=== PATIENT | male | born 1955 | race Caucasian/White ===

== ENCOUNTER 2021-10-01 07:06 | Outpatient (REF) | payer OTHER, SELFPAY ==
[2021-10-01 07:17] LABS: MANUAL DIFF FLAG NO
[2021-10-01 07:24] LABS: Eosinophils Absolute Auto 0.1 X10*3/uL (0.0-0.4); Eosinophils Percent Auto 2.8 % (0-4); Hematocrit 39.9 % (42.0-52.0); Hemoglobin 13.3 g/dl (14.0-18.0); Imm Gran Abs Auto 0.01 X10*3/uL (0.00-0.03); Imm Gran Pct Auto 0.3 % (0.0-0.4); Lymphocytes Absolute Auto 1.6 X10*3/uL (1.2-4.9); Lymphocytes Percent Auto 40.9 % (20-40); Mean Corpuscular HGB Conc 33.3 g/dl (31.0-36.0); Mean Corpuscular Hemoglobin 31.6 pg (27.0-33.0); Mean Corpuscular Volume 94.8 fL (80.0-98.0); Mean Platelet Volume 9.5 fL (9.4-12.4); Monocytes Absolute Auto 0.4 X10*3/uL (0.1-1.2); Monocytes Percent Auto 10.9 % (2-11); Neutrophils Absolute Auto 1.8 x10*3/uL (2.0-8.3); Neutrophils Percent Auto 44.1 % (45-73); Platelet Count 212 X10*3/uL (160-400); Red Blood Count 4.21 X10*6/uL (4.60-5.80); Red Cell Distribution Width 12.1 % (11.0-16.0)
[2021-10-01 07:54] LABS: Alanine Aminotransferase 28 U/L (0-40); Albumin Level 4.3 g/dL (3.5-5.0); Alkaline Phosphatase 62 U/L (39-117); Anion Gap 14 (12-20); Aspartate Amino Transferase 27 U/L (5-37); Blood Urea Nitrogen 12 mg/dL (9-16); Calcium 9.5 mg/dL (8.4-10.2); Carbon Dioxide 25 mmol/L (22-29); Chloride 107 mmol/L (96-108); Cholesterol 244 mg/dL; Estimated Glomerular Filt Rate > 60; Glucose Fasting 104 mg/dL (60-99); HDL Cholesterol 101 mg/dL; LDL Cholesterol Calculated 134 mg/dl; Potassium 4.5 mmol/L (3.3-5.1); Sodium 141 mmol/L (135-145); Total Protein 7.1 g/dL (6.5-8.0); Triglycerides 46 mg/dL
[2021-10-01 08:06] LABS: Prostate Specific Antigen 0.51 ng/mL (<0.05-4.0)
== END 2021-10-01 07:07 | disposition home or self-care (01) ==
LOC: HO.LAB 07:06
PROVIDERS: PCP Internal Medicine; Visit Provider Internal Medicine
DX: Z12.5 Encounter for screening for malignant neoplasm of prostate (principal); N40.0 Benign prostatic hyperplasia without lower urinary tract symptoms; E78.00 Pure hypercholesterolemia, unspecified
CPT/HCPCS: 36415; 80053; 80061; 84153; 85025

== ENCOUNTER 2023-01-01 06:09 | Outpatient (REF) | payer MEDICARE, SELFPAY ==
[2023-01-01 06:27] LABS: MANUAL DIFF FLAG NO
[2023-01-01 07:17] LABS: Basophils Percent Auto 0.9 % (0-2); Eosinophils Absolute Auto 0.1 X10*3/uL (0.0-0.4); Eosinophils Percent Auto 2.3 % (0-4); Hematocrit 40.5 % (42.0-52.0); Hemoglobin 13.4 g/dl (14.0-18.0); Imm Gran Abs Auto 0.02 X10*3/uL (0.00-0.03); Imm Gran Pct Auto 0.5 % (0.0-0.4); Lymphocytes Absolute Auto 1.4 X10*3/uL (1.2-4.9); Lymphocytes Percent Auto 31.4 % (20-40); Mean Corpuscular HGB Conc 33.1 g/dl (31.0-36.0); Mean Corpuscular Hemoglobin 32.1 pg (27.0-33.0); Mean Corpuscular Volume 96.9 fL (80.0-98.0); Mean Platelet Volume 9.9 fL (9.4-12.4); Monocytes Absolute Auto 0.4 X10*3/uL (0.1-1.2); Monocytes Percent Auto 8.9 % (2-11); Neutrophils Absolute Auto 2.5 x10*3/uL (2.0-8.3); Platelet Count 234 X10*3/uL (160-400); Red Blood Count 4.18 X10*6/uL (4.60-5.80); Red Cell Distribution Width 11.9 % (11.0-16.0); White Blood Count 4.4 X10*3/uL (4.8-10.8)
[2023-01-01 07:47] LABS: Alanine Aminotransferase 19 U/L (0-40); Albumin Level 4.2 g/dL (3.5-5.0); Alkaline Phosphatase 46 U/L (39-117); Anion Gap 13 (12-20); Aspartate Amino Transferase 15 U/L (5-37); Bilirubin Total 0.9 mg/dL (0.0-1.0); Blood Urea Nitrogen 14 mg/dL (9-16); Calcium 9.5 mg/dL (8.4-10.2); Carbon Dioxide 26 mmol/L (22-29); Chloride 105 mmol/L (96-108); Cholesterol 209 mg/dL; Estimated Glomerular Filt Rate > 60; Glucose Random 106 mg/dL (60-115); HDL Cholesterol 88 mg/dL; LDL Cholesterol Calculated 101 mg/dl; Potassium 4.2 mmol/L (3.3-5.1); Sodium 140 mmol/L (135-145); Total Protein 6.9 g/dL (6.5-8.0); Triglycerides 100 mg/dL
[2023-01-01 08:07] LABS: PSA,Total (Free>4and<10) 0.58 ng/mL (0.00-4.00)
[2023-01-01 09:08] LABS: Appearance Urine Turbid; Color Urine Yellow; Glucose Urine UA Negative (Negative); Leukocyte Esterase Urine Negative (Negative); Nitrite Urine Negative (Negative); Urine Blood Negative (Negative); Urine Ketones Negative (Negative); Urine Protein Negative (Neg-Trace)
== END 2023-01-01 06:10 | disposition home or self-care (01) ==
LOC: HO.LAB 06:09
PROVIDERS: PCP Internal Medicine; Visit Provider Internal Medicine
DX: Z12.5 Encounter for screening for malignant neoplasm of prostate (principal); N40.0 Benign prostatic hyperplasia without lower urinary tract symptoms; E78.00 Pure hypercholesterolemia, unspecified; Z86.010 Personal history of colon polyps
CPT/HCPCS: 36415; 80053; 80061; 81003; 84153; 85025

== ENCOUNTER 2023-11-19 11:05 | Emergency (ER) | payer MEDICARE, SELFPAY ==
--- NOTE | 2023-11-19 11:12 | ECG_ITS ---
Test Reason : dizziness Blood Pressure : / mmHG Vent. Rate : 071 BPM Atrial Rate : 071 BPM P-R Int : 174 ms QRS Dur : 090 ms QT Int : 382 ms P-R-T Axes : 000 -27 011 degrees QTc Int : 415 ms Sinus rhythm with Premature supraventricular complexes Otherwise normal ECG No previous ECGs available Referred By: Generic ED Physician Electronically Signed By:ABDOULAYE CROOKS MD
[2023-11-19 11:16] VITALS: BP 141/95; BP 160/94; PULSE 76; PULSE 88; RESP 13; TEMP 36.8; O2SAT 100; O2SAT 98; BMI 24.3
[2023-11-19 11:27] VITALS: BP 142/91; PULSE 74; PULSE 75; RESP 18; O2SAT 100
[2023-11-19 11:28] VITALS: BP 139/99; BP 141/95; PULSE 78; PULSE 79
[2023-11-19 11:29] LABS: MANUAL DIFF FLAG NO
[2023-11-19 11:36] LABS: Basophils Percent Auto 0.9 % (0-2); Eosinophils Absolute Auto 0.1 X10*3/uL (0.0-0.4); Eosinophils Percent Auto 1.1 % (0-4); Hematocrit 37.9 % (42.0-52.0); Hemoglobin 13.1 g/dl (14.0-18.0); Imm Gran Abs Auto 0.01 X10*3/uL (0.00-0.03); Imm Gran Pct Auto 0.2 % (0.0-0.4); Lymphocytes Absolute Auto 0.9 X10*3/uL (1.2-4.9); Lymphocytes Percent Auto 18.6 % (20-40); Mean Corpuscular HGB Conc 34.6 g/dl (31.0-36.0); Mean Corpuscular Hemoglobin 33.1 pg (27.0-33.0); Mean Corpuscular Volume 95.7 fL (80.0-98.0); Mean Platelet Volume 9.6 fL (9.4-12.4); Monocytes Absolute Auto 0.5 X10*3/uL (0.1-1.2); Monocytes Percent Auto 10.2 % (2-11); Neutrophils Absolute Auto 3.2 x10*3/uL (2.0-8.3); Platelet Count 212 X10*3/uL (160-400); Red Blood Count 3.96 X10*6/uL (4.60-5.80); Red Cell Distribution Width 11.9 % (11.0-16.0); White Blood Count 4.7 X10*3/uL (4.8-10.8)
[2023-11-19 11:51] LABS: Alanine Aminotransferase 16 U/L (0-40); Albumin Level 4.2 g/dL (3.5-5.0); Alkaline Phosphatase 60 U/L (39-117); Anion Gap 13 (12-20); Aspartate Amino Transferase 19 U/L (5-37); Bilirubin Total 0.6 mg/dL (0.0-1.0); Blood Urea Nitrogen 15 mg/dL (9-16); Calcium 9.2 mg/dL (8.4-10.2); Carbon Dioxide 24 mmol/L (22-29); Chloride 100 mmol/L (96-108); Creatinine Clr Calc Pharmacy 83.9; Estimated Glomerular Filt Rate > 60; Glucose Random 117 mg/dL (60-115); Potassium 4.5 mmol/L (3.3-5.1); Sodium 132 mmol/L (135-145); Total Protein 7.1 g/dL (6.5-8.0)
[2023-11-19 12:01] LABS: Troponin-I High Sensitivity < 2.7 ng/L (<3.5-35.0)
[2023-11-19 12:08] VITALS: BP 143/95; PULSE 74; RESP 16; O2SAT 99
--- NOTE | 2023-11-19 12:31 | ED_ITS ---
[facility] - General Adult General Chief complaint: Dizziness Stated complaint: DIZZY PER EMS Time Seen by Provider: 11/19/23 12:25 Source: patient Limitations: no limitations History of Present Illness HPI narrative: This is a 68-year-old man with a past medical history of hyperlipidemia, meniscectomy who presents for evaluation of dizziness. Patient states that he went on a walk this morning. Patient reports that he was walking his dog with his daughter. Patient states that he ran up a steep hill felt dizzy. Patient states no loss of consciousness or head strike. Patient reports that he felt more dizzy than short breath. He states no associated exertional chest pain. He states that he went home. Patient states that he put his fingers in his mouth in order to induce vomiting. He states that he was hoping that this might make him feel better. Patient states that he was bent down with his head in the toilet bowl. Patient reports that he then stood up and shortly thereafter began to feel dizzy once again. Patient reports that this lasted for seconds. He States no associated dyspnea, chest pain, palpitations, loss of consciousness or nausea/vomiting with this episode. He states no associated vision changes, diplopia, vision loss, hearing changes, hearing loss, tinnitus, ear pain, paresthesias, headache, neck pain or speech changes. He states no recent febrile illness. He states no recent diarrheal illness. He states no urinary symptoms. Related Data Allergies Allergy/AdvReac Type Severity Reaction Status Date / Time No Known Allergies Allergy Verified 11/19/23 11:18 Review of Systems 2 Review of Systems: ROS as per [facility] Social History Social History Alcohol intake: current Alcohol type: beer Smoked in Last 30 Days: No Use of substances other than those prescribed or required for medical reasons: No Advance Directives: No Advance Directives Information Provided: No Do you have a plan to hurt others: No Plan Physical Exam ED Vital Signs: Vital Signs - 24 hr 11/19/23 11:16 11/19/23 11:27 11/19/23 11:27 Temperature 98.3 F Pulse Rate 76 75 74 Respiratory Rate 13 18 Blood Pressure 141/95 H 142/91 H 142/91 H Pulse Oximetry 100 100 Oxygen Delivery Method Room Air Room Air 11/19/23 11:28 11/19/23 11:28 11/19/23 12:08 Temperature Pulse Rate 79 78 74 Respiratory Rate 16 Blood Pressure 141/95 H 139/99 H 143/95 H Pulse Oximetry 99 Oxygen Delivery Method Room Air 11/19/23 13:35 Temperature 98.3 F Pulse Rate 74 Respiratory Rate 16 Blood Pressure 143/95 H Pulse Oximetry 99 Oxygen Delivery Method Room Air BMI result Body Mass Index 24.3 Gen: NAD, AOx3 HEENT: NCAT, EOMI, normal conjunctiva CV: RRR Pulm: CTAB, no increased work of breathing GI: Soft, NTND, no rebound, guarding or rigidity Neuro: Cranial nerves 2-12 are intact, intact sensation to light touch in bilateral upper and lower extremities, 5/5 strength to bilateral upper extremities and lower extremities, no truncal ataxia, no dysmetria or dysdiadochokinesia, normal gait, no focal neurological deficits Medical Decision Making Medical Decision Making [facility] Narrative: Differential diagnosis includes, but is not limited to acute coronary syndrome, dehydration, electrolyte abnormality, heat exhaustion, orthostatic hypotension, benign paroxysmal positional vertigo. Patient is asymptomatic at time of history and examination. Patient is afebrile and hemodynamically stable on room air. Exam is benign and reassuring. There are no focal neurological deficits. NIHSS 0. Patient has unidirectional/leftward horizontal inducible and fatigable nystagmus. Given the patient's history of trigger notable dizziness and nystagmus on exam, Nolvia-Hallpike is performed, which does not exacerbate the patient's symptoms. However, benign paroxysmal positional vertigo remains on the differential. I reviewed and interpreted labs, which are noncontributory. I reviewed and interpreted EKG, which is unremarkable for any acute findings. On re-examination, patient is well-appearing and in no acute distress. ?Patient states symptoms have resolved. ?There is no indication for further emergent evaluation in this otherwise well-appearing patient as above. ?Patient is provided written and verbal instructions, educational materials, recommendations for outpatient follow-up, strict return precautions and teach back is performed. ?Patient states understanding and agreement with plan of care. ?Patient is discharged home in stable and improved condition. Admission/Observation Consideration of admission/observation: Escalation of care including admission/observation considered Lab Data [facility] Lab Attestation statement: I reviewed the patient's lab results. 11/19/23 11:26 11/19/23 11:26 Labs: Lab Results 06/03/24 Range/Units 11:26 WBC 4.7 L (4.8-10.8) X10*3/uL RBC 3.96 L (4.60-5.80) X10*6/uL Hgb 13.1 L (14.0-18.0) g/dl Hct 37.9 L (42.0-52.0) % MCV 95.7 (80.0-98.0) fL MCH 33.1 H (27.0-33.0) pg MCHC 34.6 (31.0-36.0) g/dl RDW 11.9 (11.0-16.0) % Plt Count 212 (160-400) X10*3/uL MPV 9.6 (9.4-12.4) fL Immature Gran % (Auto) 0.2 (0.0-0.4) % Neut % (Auto) 69.0 (45-73) % Lymph % (Auto) 18.6 L (20-40) % Concho % (Auto) 10.2 (2-11) % Eos % (Auto) 1.1 (0-4) % Baso % (Auto) 0.9 (0-2) % Lymph # (Auto) 0.9 L (1.2-4.9) X10*3/uL Concho # (Auto) 0.5 (0.1-1.2) X10*3/uL Eos # (Auto) 0.1 (0.0-0.4) X10*3/uL Baso # (Auto) 0.0 (0.0-0.2) X10*3/uL Abs Immat Gran (auto) 0.01 (0.00-0.03) X10*3/uL Absolute Neuts (auto) 3.2 (2.0-8.3) x10*3/uL Absolute Nucleated RBC 0.000 (0.0-0.012) X10*3/uL Nucleated RBC % (auto) 0.0 (0.0-0.2) /100WBC Sodium 132 L (135-145) mmol/L Potassium 4.5 (3.3-5.1) mmol/L Chloride 100 (96-108) mmol/L Carbon Dioxide 24 (22-29) mmol/L Anion Gap 13 (12-20) BUN 15 (9-16) mg/dL Creatinine 0.87 (0.5-1.4) mg/dL Estim Creat Clear Calc 83.9 Estimated GFR > 60 Random Glucose 117 H (60-115) mg/dL Calcium 9.2 (8.4-10.2) mg/dL Total Bilirubin 0.6 (0.0-1.0) mg/dL AST 19 (5-37) U/L ALT 16 (0-40) U/L Alkaline Phosphatase 60 (39-117) U/L Troponin I High Sens < 2.7 (<3.5-35.0) ng/L Total Protein 7.1 (6.5-8.0) g/dL Albumin 4.2 (3.5-5.0) g/dL Independent Interpretation I performed an independent interpretation of an: EKG Interpretation: EKG shows sinus rhythm at 71 beats per minute, UT 174, QRS 90, QTC 415, T-wave inversion lead III, no STEMI (no prior EKG for comparison) Independent Historian Clinical information obtained from an independent historian. History obtained from or confirmed by: Spouse and Other (Daughter) Family states patient does not drink much water and express concern for dehydration and/or heat exposure Discharge Plan Discharge Clinical Impression: Dizziness Patient Disposition: Home, Self-Care Instructions: Dizziness (ED) Additional Instructions: You were seen and evaluated in the emergency room. Your vital signs were normal and he did not have fever. ? Your physical exam was reassuring. Your blood work was normal. Your EKG was normal. Please follow-up with your primary care doctor in the next 5-7 days. ? Please return to the emergency room if you develop any worsening symptoms including, but not limited to persistent dizziness, intractable nausea/vomiting, inability to eat/drink, vision changes, hearing changes, speech changes, numbness/tingling, arm/leg weakness, chest pain or difficulty breathing. ? Interventions: ED Discharge Assessment Last Done: 11/19/23 13:35 Discharge Date/Time: 11/19/23 13:36 Print Language: Slovenian
[2023-11-19 13:35] VITALS: BP 143/95; PULSE 74; RESP 16; TEMP 36.8; O2SAT 99
== END 2023-11-19 13:36 | disposition home or self-care (01) ==
PROVIDERS: Emergency Provider Emergency Medicine; PCP Internal Medicine
DX: R42 Dizziness and giddiness (principal); R06.02 Shortness of breath; E78.5 Hyperlipidemia, unspecified
CPT/HCPCS: 36415; 80053; 84484; 85025; 93005; 99283; 99284

== ENCOUNTER → 2023-11-19 11:12 | Outpatient (BNV) | payer MEDICARE, SELFPAY | PROVIDERS: Emergency Provider Emergency Medicine; PCP Internal Medicine; Visit Provider Internal Medicine Cardiovascular Disease | DX: R42 Dizziness and giddiness (principal) | CPT/HCPCS: 93010 ==

== ENCOUNTER 2023-12-10 06:11 | Outpatient (REF) | payer MEDICARE, SELFPAY ==
[2023-12-10 12:23] LABS: Appearance Urine Clear; Color Urine Yellow; Glucose Urine UA Negative (Negative); Leukocyte Esterase Urine Trace (Negative); Nitrite Urine Negative (Negative); PH 7.5 (5.0-9.0); UMIC TRIGGER UA YES; Urine Blood Negative (Negative); Urine Ketones Negative (Negative); Urine Protein Negative (Neg-Trace)
[2023-12-10 12:30] LABS: Bacteria Urine None Seen (None Seen); Hyaline Casts Urine 0-2 /LPF (0-2); RBC Urine 0-2 /HPF (0-2); Squamous Epithelial Cell Urine 0-2 /HPF (0-2)
[2023-12-10 12:53] LABS: Alanine Aminotransferase 16 U/L (0-40); Albumin Level 4.6 g/dL (3.5-5.0); Alkaline Phosphatase 63 U/L (39-117); Anion Gap 18 (12-20); Aspartate Amino Transferase 16 U/L (5-37); Blood Urea Nitrogen 10 mg/dL (9-16); Calcium 9.7 mg/dL (8.4-10.2); Carbon Dioxide 25 mmol/L (22-29); Chloride 103 mmol/L (96-108); Cholesterol 234 mg/dL (<200); Estimated Glomerular Filt Rate > 60; Glucose Fasting 97 mg/dL (60-99); HDL Cholesterol 98 mg/dL (>40); LDL Cholesterol Calculated 124 mg/dL (<100); Potassium 4.8 mmol/L (3.3-5.1); Prostate Specific Antigen 0.58 ng/mL (<0.05-4.0); Sodium 141 mmol/L (135-145); Total Protein 7.6 g/dL (6.5-8.0); Triglycerides 63 mg/dL (<150)
== END 2023-12-10 06:12 | disposition home or self-care (01) ==
LOC: HO.HMGCLDS 06:11
PROVIDERS: PCP Internal Medicine; Visit Provider Internal Medicine
DX: E78.00 Pure hypercholesterolemia, unspecified (principal); K57.90 Diverticulosis of intestine, part unspecified, without perforation or abscess without bleeding; Z12.5 Encounter for screening for malignant neoplasm of prostate
CPT/HCPCS: 36415; 80053; 80061; 81001; 84153

== ENCOUNTER → 2023-12-31 07:50 | Outpatient (REF) | payer MEDICARE, SELFPAY ==
--- NOTE | 2023-12-31 07:53 | CA_ITS ---
Acquisition Time: 2023-12-31 08:07:47 Total Exercise Time: 00:08:59 Test Indications: Syncope Medications: SEE H Protocol: RGAEME Max HR: 136 BPM 89% of Pred: 152 BPM Max BP: 164/080 mmHG Max Work Load: 10.1 METS Exercise stress test exercise 8 min 59 sec of Graeme protocol achieving 87% MPHR, without anginal symptoms, without dizziness, with isolated PACs and PVCs, with normotensive response to exercise, without EKG changes. Test reviewed with Dr. Barrett Referred By: Chilo Hebert Overread By: Elly Ferreira
== END ==
LOC: HO.CARD 07:50
PROVIDERS: PCP Internal Medicine; Visit Provider Internal Medicine
DX: R42 Dizziness and giddiness (principal)
CPT/HCPCS: 93017

== ENCOUNTER → 2023-12-31 07:53 | Outpatient (BNV) | payer MEDICARE, SELFPAY | PROVIDERS: PCP Internal Medicine; Visit Provider Nurse Practitioner | DX: I49.1 Atrial premature depolarization (principal); I49.3 Ventricular premature depolarization | CPT/HCPCS: 93016; 93018 ==

== ENCOUNTER 2024-12-01 09:15 | Outpatient (AMB) | payer MEDICARE, SELFPAY ==
--- NOTE | 2024-12-01 09:22 | MHC.PC.OV ---
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 Reviewed prior blood pressures which have been consistently uncontrolled. Blood pressure in the office today 150/108, recheck 136/86. Hypercholesterolemia-last LDL 124. On simvastatin 40 mg daily BPH-denies significant LUTS Works 20 hours per week works at [employer]. Goes to [employer]. Lives in [place] with . He is a former smoker, quit 30 years ago. He occasionally consumes alcohol, a few beers per month. Denies any illicit drug use or marijuana use. Concerns: None Health Maintenance: Last colonoscopy-02/2020 with 5 year follow-up advised due to personal history of adenomatous colon polyps. Dr. Randall Due for screening PSA ROS: General: No fevers, malaise, unintentional weight loss HEENT: No blurred vision, diplopia. No sore throat, nasal congestion, rhinorrhea, sinus pain, ear pain Neck - no adenopathy Cardiovascular: No chest pain, palpitations, or leg edema Respiratory: No shortness of breath, wheezing, cough GI: No abdominal pain, nausea, vomiting, diarrhea, constipation, melena, hematochezia : No dysuria, hematuria, increased urinary frequency, decreased urinary output MSK: No myalgia, back pain, arthralgias Neuro: No headaches, weakness, paresthesias Psych: no depression/anxiery. No AH/VH. No SI/HI Skin: No rashes or lesions EXAM: Constitutional - Awake and Alert, No apparent distress Eyes - PERRLA, EOMI. Anicteric Nose- septum midline, nares clear, no sinus tenderness Mouth/throat- mucosa moist, tongue and uvula midline, no erythema/edema or tonsillar adenopathy. Neck-trachea midline, thyroid symmetric without palpable nodules, no adenopathy Cardiovascular - S1S2, RRR, No edema Respiratory - Normal lung expansion, Normal respiratory effort, No respiratory distress, CTA bilaterally Gastrointestinal - NT / ND; +BS; No rebound or guarding - No CVA tenderness Extremities - no calf tenderness bilaterally, no swelling Musculoskeletal - Normal inspection, normal ROM Skin - Warm/Dry Neurological - Alert & oriented x3, CN II-XII in tact, 5/5 strength BUE and BLE Psychological - Appropriate affect [facility] Medical History (Updated 12/01/24 @ 09:32 by ANEL Mills) Tubular adenoma Anemia of chronic disease BPH (benign prostatic hyperplasia) Hypercholesterolemia Hypertension Surgical History (Updated 12/01/24 @ 09:34 by ANEL Mills) S/P inguinal hernia repair History of colonoscopy (~03/12/20) Family History (Updated 12/01/24 @ 09:35 by ANEL Mills) Other No significant family history Social History Alcohol intake: current Alcohol type: beer Questionnaire PHQ-9 Over the last 2 weeks, how often have you been bothered by any of the following problems? 1. Little interest or pleasure in doing things: not at all 2. Feeling down, depressed, or hopeless: not at all 3. Trouble falling or staying asleep, or sleeping too much: not at all 4. Feeling tired or having little energy: not at all 5. Poor appetite or overeating: not at all 6. Feeling bad about yourself - or that you are a failure or have let yourself or your family down: not at all 7. Trouble concentrating on things, such as reading the newspaper or watching television: not at all 8. Moving or speaking so slowly that other people could have noticed. Or the opposite - being so fidgety or restless that you have been moving around a lot more than usual: not at all 9. Thoughts that you would be better off or of hurting yourself in some way: not at all Total score: 0 Source: Developed by Drs. Uday Staples, Paulina iWlkerson, Darrell Flores and colleagues, with an educational germán from [employer]. Thrive Questionnaire Date Thrive assessed: 12/01/24 I am a: Patient What is your living situation today?: I have a steady place to live Within the past 12 months, did the food you bought not last and you didn't have the money to get more?: Never true Within the past 12 months, did you worry whether your food would run out before you got money to buy more?: Never true Do you have trouble paying for medicines?: No Do you have trouble getting transportation to medical appointments?: No Do you have trouble paying your heating and electricity bill?: No Do you have trouble taking care of your child, family member or friend?: No Do you have trouble with day-to-day activities such as bathing, preparing meals, shopping, managing finances, etc.?: No Are you currently unemployed and looking for a job?: No Are you interested in more education?: No Please select the resources that you would like help with: None THRIVE Score: 0 WILMER-7 AMB Questionnaire WILMER-7 Date WILMER - 7 assessed: 12/01/24 Feeling nervous, anxious, or on edge: 0 = Not at all Not being able to stop or control worryin = Not at all Worrying too much about different things: 0 = Not at all Trouble relaxin = Not at all Being so restless that it is hard to sit still: 0 = Not at all Becoming easily annoyed or irritable: 0 = Not at all Feeling afraid as if something awful might happen: 0 = Not at all Total WILMER-7 score (0-4 normal; 5-9 mild; 10-14 moderate; 15-21 severe): 0 Source: Developed by Drs. Uday Staples, Paulina Wilkerson, Darrell Flores and colleagues, with an educational germán from [employer]. Physical exam (Primary Care) Vital Signs: Last Vital Signs Temp 97.3 F 12/01/24 09:24 Pulse 77 12/01/24 09:24 Resp 12/01/24 09:24 BP 150/108 H 12/01/24 09:24 Pulse Ox 95 12/01/24 09:24 Oxygen Delivery Method Room Air 12/01/24 09:24 BMI result Body Mass Index 24.2 Advance Care Planning discussion: Exists, not on file Date of discussion: 12/01/24 Who was present: Patient Forms completed: Health Care Proxy and MOLST Time spent: 1-15 minutes, not on file Coding Level of Care Code New Pt Level 4 (67289) New Pt Prev Care >65yr (31594) Diagnoses Routine medical exam Z00.00 Hypercholesterolemia E78.00 Tubular adenoma D36.9 Hypertension I10 Additional Codes Vital Signs *Quality* - Advance Care Planning discussion: Exists, not on file ([id number]) Vital Signs *Quality* - Time spent: 1-15 minutes, not on file ([id number]) Assessment & Plan Assessment & Plan (1) Routine medical exam: Code(s): Z00.00 - Encounter for general adult medical examination without abnormal findings Plan: 69-year-old male in good state of general health. Healthcare proxy and MOLST forms reviewed (2) Hypercholesterolemia: Code(s): E78.00 - Pure hypercholesterolemia, unspecified Category: Medical Plan: Lipid panel ordered. Continue simvastatin 40 mg daily, dose to be adjusted as needed (3) Tubular adenoma: Code(s): D36.9 - Benign neoplasm, unspecified site Category: Medical Plan: Referred for screening colonoscopy, due 02/2025 (4) Hypertension: Code(s): I10 - Essential (primary) hypertension Category: Medical Plan: Controlled on recheck. Advised to monitor blood pressures occasionally with goal less than 140/90. Low-sodium diet. Plan Routine screening labs as ordered below Continue with screening colonoscopies and PSA Continue following for annual skin exams and use sun protection Annual eye exams Wear seat belt in car Recommend regular exercise and healthy diet Follow up in 1 year for annual Orders: Orders Basic Metabolic Panel Today D36.9 - Benign neoplasm, unspecified site, D63.8 - Anemia in other chronic diseases classified elsewhere, E78.00 - Pure hypercholesterolemia, unspecified, I10 - Essential (primary) hypertension, N40.0 - Benign prostatic hyperplasia without lower urinary tract symptoms, R73.09 - Other abnormal glucose Lipid Panel Today D36.9 - Benign neoplasm, unspecified site, D63.8 - Anemia in other chronic diseases classified elsewhere, E78.00 - Pure hypercholesterolemia, unspecified, I10 - Essential (primary) hypertension, N40.0 - Benign prostatic hyperplasia without lower urinary tract symptoms, R73.09 - Other abnormal glucose Liver Panel Today D36.9 - Benign neoplasm, unspecified site, D63.8 - Anemia in other chronic diseases classified elsewhere, E78.00 - Pure hypercholesterolemia, unspecified, I10 - Essential (primary) hypertension, N40.0 - Benign prostatic hyperplasia without lower urinary tract symptoms, R73.09 - Other abnormal glucose Prostate Specific Antigen Today D36.9 - Benign neoplasm, unspecified site, D63.8 - Anemia in other chronic diseases classified elsewhere, E78.00 - Pure hypercholesterolemia, unspecified, I10 - Essential (primary) hypertension, N40.0 - Benign prostatic hyperplasia without lower urinary tract symptoms, R73.09 - Other abnormal glucose IRON PROFILE Today D63.8 - Anemia in other chronic diseases classified elsewhere Complete Blood Count Auto Diff Today D36.9 - Benign neoplasm, unspecified site, D63.8 - Anemia in other chronic diseases classified elsewhere, E78.00 - Pure hypercholesterolemia, unspecified, I10 - Essential (primary) hypertension, N40.0 - Benign prostatic hyperplasia without lower urinary tract symptoms, R73.09 - Other abnormal glucose Hemoglobin A1c Today D36.9 - Benign neoplasm, unspecified site, D63.8 - Anemia in other chronic diseases classified elsewhere, E78.00 - Pure hypercholesterolemia, unspecified, I10 - Essential (primary) hypertension, N40.0 - Benign prostatic hyperplasia without lower urinary tract symptoms, R73.09 - Other abnormal glucose Referrals Gastroenterology Referral D36.9 - Benign neoplasm, unspecified site
[2024-12-01 09:24] VITALS: BP 150/108; PULSE 77; RESP 16; TEMP 36.3; O2SAT 95; BMI 24.2
[2024-12-01 09:45] VITALS: BP 136/86
== END 2024-12-01 10:04 | disposition home or self-care (01) ==
LOC: HO.HMCHD 09:16
PROVIDERS: PCP Internal Medicine; Visit Provider Physician Assistant
DX: E78.00 Pure hypercholesterolemia, unspecified (principal); D36.9 Benign neoplasm, unspecified site; I10 Essential (primary) hypertension; Z00.00 Encounter for general adult medical examination without abnormal findings

== ENCOUNTER → 2024-12-01 09:15 | Outpatient (BNVA) | payer MEDICARE, SELFPAY | PROVIDERS: PCP Internal Medicine; Visit Provider Physician Assistant ==

== ENCOUNTER 2024-12-01 09:50 | Outpatient (REF) | payer MEDICARE, SELFPAY ==
[2024-12-01 13:19] LABS: MANUAL DIFF FLAG NO
[2024-12-01 13:32] LABS: Eosinophils Absolute Auto 0.1 X10*3/uL (0.0-0.4); Eosinophils Percent Auto 1.8 % (0-4); Hemoglobin 13.3 g/dl (14.0-18.0); Imm Gran Abs Auto 0.01 X10*3/uL (0.00-0.03); Imm Gran Pct Auto 0.3 % (0.0-0.4); Lymphocytes Absolute Auto 1.3 X10*3/uL (1.2-4.9); Lymphocytes Percent Auto 33.8 % (20-40); Mean Corpuscular HGB Conc 34.1 g/dl (31.0-36.0); Mean Corpuscular Hemoglobin 32.4 pg (27.0-33.0); Mean Corpuscular Volume 95.1 fL (80.0-98.0); Mean Platelet Volume 9.9 fL (9.4-12.4); Monocytes Absolute Auto 0.4 X10*3/uL (0.1-1.2); Monocytes Percent Auto 10.9 % (2-11); Neutrophils Absolute Auto 2.1 x10*3/uL (2.0-8.3); Neutrophils Percent Auto 52.2 % (45-73); Platelet Count 217 X10*3/uL (160-400); Red Cell Distribution Width 12.1 % (11.0-16.0); White Blood Count 3.9 X10*3/uL (4.8-10.8)
[2024-12-01 13:44] LABS: Estimated Average Glucose 91 mg/dL; Hemoglobin A1c % 4.8 % (<6.0)
[2024-12-01 13:50] LABS: Alanine Aminotransferase 23 U/L (0-40); Albumin Level 4.5 g/dL (3.5-5.0); Alkaline Phosphatase 55 U/L (39-117); Anion Gap 13 (12-20); Aspartate Amino Transferase 21 U/L (5-37); Bilirubin Direct 0.2 mg/dL (0.0-0.5); Bilirubin Total 0.6 mg/dL (0.0-1.0); Blood Urea Nitrogen 14 mg/dL (9-16); Calcium 9.5 mg/dL (8.4-10.2); Carbon Dioxide 26 mmol/L (22-29); Chloride 106 mmol/L (96-108); Cholesterol 250 mg/dL (<200); Estimated Glomerular Filt Rate > 60; Glucose Random 90 mg/dL (60-115); HDL Cholesterol 93 mg/dL (>40); Iron 157 mcg/dL (45-160); LDL Cholesterol Calculated 141 mg/dL (<100); Percent Iron Saturation 60 % (15-50); Potassium 4.1 mmol/L (3.3-5.1); Sodium 141 mmol/L (135-145); Total Iron Binding Capacity 263 mcg/dL (228-428); Total Protein 7.1 g/dL (6.5-8.0); Triglycerides 82 mg/dL (<150); Unsaturated Iron Binding 106 ug/dL
[2024-12-01 14:04] LABS: Prostate Specific Antigen 0.56 ng/mL (<0.05-4.0)
== END 2024-12-01 09:51 | disposition home or self-care (01) ==
LOC: HO.10HDL 09:50
PROVIDERS: Visit Provider Physician Assistant
DX: I10 Essential (primary) hypertension (principal); E78.00 Pure hypercholesterolemia, unspecified; N40.0 Benign prostatic hyperplasia without lower urinary tract symptoms; D63.8 Anemia in other chronic diseases classified elsewhere; D36.9 Benign neoplasm, unspecified site; R73.09 Other abnormal glucose
CPT/HCPCS: 36415; 80048; 80061; 80076; 83036; 83540; 84153; 85025; 99202

== ENCOUNTER 2025-04-17 08:46 | Day surgery (SDC) | payer MEDICARE, SELFPAY ==
--- OUTSIDE RECORDS SUMMARY | 2025-03-16 14:07 | XMS_ITS | Patient Health Record ---
Author Organization [facility] Address [address] [place] [address] Care Team Providers Care Mess Cook Name Role Phone SIMON RINALDI Primary Care Provider Peter Tomlinson Jr Allergies No Known Allergies Reason For Referral No Information Medications Medication SIG (Take, Route, Frequency, Duration) Notes Start Date End Date Status Atorvastatin Calcium 40 MG TAKE 1 TABLET BY MOUTH AT BEDTIME Oral for 90 Days Active Immunizations Vaccine Route Administration Date Status Comme nts Influenza Unknown 10/29/2019 Refused Influenza Unknown 03/16/2025 Refused Problems Problem Type SNOMED Code ICD Code Onset Dates Problem Status W/U Status Risk Notes Problem 753008725 Colon cancer screening (Z12.11) Active confirmed Problem 93601925 Rectal bleeding (K62.5) Active confirmed Problem [id number] Encounter for other preprocedural examination (Z01.818) Active confirmed Problem Personal history of adenomatous and serrated colon polyps (Z86.0101) Active confirmed Vital Signs Temperature 98.6 degrees Fahrenheit 03/16/2025 Blood pressure diastolic 01 mm Hg 03/16/2025 Height 68 in 03/16/2025 Blood pressure systolic 001 mm Hg 03/16/2025 Weight 172.8 lbs 03/16/2025 BMI 26.27 kg/m2 03/16/2025 Encounters Encounter Location Date Provider Diagnosis [facility] [address] [place] [address] 03/16/2025 Peter Randall Jr Colon cancer screening Z12.11 ; Encounter for other preprocedural examination Z01.818 and Personal history of adenomatous and serrated colon polyps Z86.0101 Assessments Encounter Date Diagnosis (ICD Code) Assessment Notes Treatment Notes Treatment Clinical Notes Section Notes 03/16/2025 Colon cancer screening (ICD-10 - Z12.11) We discussed risks and benefits of the procedure today. He understands these and agrees to proceed. This will be scheduled at his convenience. 03/16/2025 Encounter for other preprocedural examination (ICD-10 - Z01.818) We discussed risks and benefits of the procedure today. He understands these and agrees to proceed. This will be scheduled at his convenience. 03/16/2025 Personal history of adenomatous and serrated colon polyps (ICD-10 - Z86.0101) We discussed risks and benefits of the procedure today. He understands these and agrees to proceed. This will be scheduled at his convenience. Plan Of Treatment Future Test Test Name Order Date COLONOSCOPY 04/21/2015 COLONOSCOPY 10/29/2019 Next Appt Details Provider Name:Peter lugo Jr, 04/17/2025 10:30:00 AM, [address] [place] [address] , [place], [place], [phone], Insurance Providers Payer Name Payer Address Payer Phone Subscriber Number Group Number Insured Name Patient Relationship to Insured Coverage Start Date Coverage End Date MEDICARE OF [place] [address] [facility] [place] [address] [phone] [id number] KATHY ZAVALA Self - patient is the insured 0 [employer] ATT[employer] CLAIMS [address] [place] [address] [phone] [id number] KATHY ZAVALA Self - patient is the insured Medical (General) History Medical History History ICD Code Colonoscopy 03/07, normal, 5- year follow-up for personal history of colon polyps elevated cholesterol Surgical History Surgery Date(Month/Year) hernia repair left and right right knee arthroscopy
--- NOTE | 2025-04-15 09:57 | P.CONAN_ITS ---
Documented by User: Fabby Mckeon NP 04/15/25 09:57 HPI - Anesthesia Eval Consult details Narrative: 69yo M for Colonoscopy [facility] Active Problems Active Problems: All Active Problems Tubular adenoma (Acute) Anemia of chronic disease (Acute) BPH (benign prostatic hyperplasia) (Acute) Hypercholesterolemia (Acute) Hypertension (Acute) Past Medical History Medical History Tubular adenoma Anemia of chronic disease BPH (benign prostatic hyperplasia) Hypercholesterolemia Hypertension Family History Family History (Updated 12/01/24 @ 09:35 by ANEL Mills) Other No significant family history Surgical History Surgical History S/P inguinal hernia repair History of colonoscopy (~03/12/20) Social History Social History Alcohol intake: current Alcohol type: beer Advance Directives: No Advance Directives Information Provided: Yes Meds Allergies Allergy/AdvReac Type Severity Reaction Status Date / Time No Known Allergies Allergy Verified 12/01/24 09:22 Assessment and Plan Assessment Anesthesia Assessment: Chart Reviewed Documented by User: Sudarshan Antonio MD 04/17/25 09:38 [facility] Past Medical History Medical History Tubular adenoma Anemia of chronic disease BPH (benign prostatic hyperplasia) Hypercholesterolemia Hypertension Family History Family History (Updated 12/01/24 @ 09:35 by ANEL Mills) Other No significant family history Family history of problems with anesthesia: No Surgical History Surgical History S/P inguinal hernia repair History of colonoscopy (~03/12/20) History of Problems with Anesthesia: No Social History Social History Alcohol intake: current Alcohol type: beer Advance Directives: No Advance Directives Information Provided: Yes Meds Allergies Allergy/AdvReac Type Severity Reaction Status Date / Time No Known Allergies Allergy Verified 12/01/24 09:22 Exam Airway Mallampati Class: II TM Dist: <=3cm Neck ROM: Full Loose/Missing/Broken Teeth: No Heart: ok Lungs: ok Assessment and Plan Assessment Anesthesia Assessment: Anesthesia Plan Discussed Final Anesthetic Review Family History of Problems with Anesthesia: No History of Problems with Anesthesia: No NPO: Yes ASA Class: II Final Preanesthetic Review: No Changes in Pt Med Stat, Meds/Allgs Chart Reviewed, Consent Obtained/Reviewed and Anes Risks/Benef Reviewed Patient Risk: Low Procedure Risk: Intermediate Anesthetic Plan Anesthetic Plan: MAC: and Agree w/ Assess. and Plan Disposition: Standard PACU
[2025-04-15 13:49] VITALS: BMI 26.2
[2025-04-17 09:24] VITALS: BMI 24.9
[2025-04-17 09:31] VITALS: BP 132/92; PULSE 83; RESP 15; TEMP 36.7; O2SAT 99
[2025-04-17] MEDS: Lactated Ringers 1,000 ML 100 ML IVCONT (09:47)
--- NOTE | 2025-04-17 10:10 | MHC.SHP ---
Pre-Procedural Eval Section A - 24 Hr Update-Section A only Date of Service: 04/17/25 Section B - Complete if H&P > 30 days Chief Complaint: screening Details of Present Illness: see H*P no chnages Relevant Family History (Specify if Yes): No Relevant Social History: None Present Medications: see Short Stay Collaborative assessment Medical History: No relevant PMH History of Previous Operations: Relevant previous surgery/procedure and date(s) Allergies: Allergies Allergy/AdvReac Type Severity Reaction Status Date / Time No Known Allergies Allergy Verified 12/01/24 09:22 Review of Systems Sugical H&P ROS: Negative: Constitution, Cardiovascular, Respiratory, Neurological, Psychiatric, Hem-Onc, Allergic/Immunologic, Gastrointestinal, Genitourinary, Musculoskeletal, Integumentary, Endocrine and Eyes/Ears/Nose/Throat Exam Surgical H&P Exam: Normal: HEENT, Normal: Heart, Normal: Lungs, Normal: Extremities, Normal: Abdomen, Normal: Skin and Normal: Neurological Plan Diagnosis/Plan: Unchanged I have reviewed the history and physical and performed a pertinent physical examination on my patient. No changes have occurred unless specified. Time Spent With Patient Time: Total time managing care of this patient today ____ minutes.
[2025-04-17 10:51] VITALS: BP 97/65; PULSE 72; RESP 18; TEMP 36.6; O2SAT 96
[2025-04-17 11:00] VITALS: BP 117/84; PULSE 79; RESP 18; O2SAT 96
--- NOTE | 2025-04-17 11:12 | OP_ITS ---
DATE OF SERVICE: 04/17/2025 SURGEON: Peter Randall MD INDICATIONS: Colon cancer screening and prior history of adenomatous colon polyps. PREOPERATIVE DIAGNOSIS: POSTOPERATIVE DIAGNOSIS: PROCEDURE PERFORMED: Colonoscopy to the terminal ileum. ESTIMATED BLOOD LOSS: COMPLICATIONS: ANESTHESIA: Monitored anesthesia care. ASSISTANTS: SPECIMENS: DESCRIPTION OF PROCEDURE: A history and physical was performed. The risks and benefits of the procedure were explained to the patient, and informed consent was obtained. The patient was placed in the left lateral decubitus position. A digital rectal exam was performed and was found to be normal. The Olympus pediatric video colonoscope was introduced into the rectum and advanced to the cecum. The cecum was identified by transillumination, palpation, and identification of ileocecal valve examination was performed. The scope was removed. He tolerated the procedure well and was returned to the recovery area in stable condition. FINDINGS: The terminal ileum was examined and appeared normal. The visualized colonic mucosa was within normal limits without evidence of masses or ulcers. The quality of the prep was good. There was some liquid stool, which was suctioned. No polyps were identified. Retroflexed examination showed internal hemorrhoids. IMPRESSION: Normal colonoscopy. RECOMMENDATION: 1. Follow up as needed. 2. Repeat colonoscopy is recommended in 10 years for average-risk individuals. MD HALEIGH Barakat/GINI / [id number]
[2025-04-17 11:15] VITALS: BP 127/94; PULSE 70; RESP 18; TEMP 36.6; O2SAT 100
== END 2025-04-17 11:33 | disposition home or self-care (01) ==
PROVIDERS: PCP Internal Medicine; Visit Provider Internal Medicine Gastroenterology
PROC: 0DJD8ZZ Inspection of Lower Intestinal Tract, Via Natural or Artificial Opening Endoscopic (ICD-10-PCS; CPT 45378; principal; 2025-04-17 10:30)
DX: Z12.11 Encounter for screening for malignant neoplasm of colon (principal); Z86.0101 Personal history of adenomatous and serrated colon polyps; K64.8 Other hemorrhoids; E78.00 Pure hypercholesterolemia, unspecified; Z79.899 Other long term (current) drug therapy; Z98.890 Other specified postprocedural states; Z87.891 Personal history of nicotine dependence
CPT/HCPCS: G0105; J2003; J2704